=== PATIENT | female | born 1985 | race Two or more races ===

== ENCOUNTER 2020-05-31 22:52 | Emergency (ER) | payer MEDICAID ==
[~2020-05-31] VITALS: Ht 152.4 cm; Wt 75.0 kg
[2020-05-31] MEDS ORDERED: HYDROCODONE/ACETAMINOPHEN 5/325MG TABLET PO ONE (23:30)
[2020-06-01 01:12] VITALS: BP 127/81
[2020-06-01] MEDS ORDERED: KETOROLAC 30MG/ML VIAL IM ONE (01:15)
== END 2020-06-01 03:57 | disposition home or self-care (01) ==
LOC: ER 22:52
DX: S70.02XA Contusion of left hip, initial encounter (principal); W50.2XXA Accidental twist by another person, initial encounter; Y93.89 Activity, other specified; Y92.89 Other specified places as the place of occurrence of the external cause; Y99.8 Other external cause status; Z87.19 Personal history of other diseases of the digestive system
CPT/HCPCS: 72192; 73502; 96372; 99284; J1885; Z7610